=== PATIENT | female | born 1995 | race Caucasian/White ===

== ENCOUNTER 2024-12-15 16:34 | Outpatient (CLI) | payer BC, SELFPAY ==
[2024-12-15 21:11] LABS: Bacterial Vaginosis* Negative (Negative); Candida glab/krus NOT DETECTED (No Detected); Candida species DETECTED (No Detected); Trichomonas vaginalis NOT DETECTED (No Detected)
[2024-12-15 21:42] LABS: Chlamydia DNA Amplified* NOT DETECTED (No Detected); GC DNA Amplified* NOT DETECTED (No Detected)
[2024-12-19 05:17] LABS: HPV Source Cervix; HPV, High Risk by TMA Not Detected
== END 2024-12-15 16:35 | disposition home or self-care (01) ==
PROVIDERS: Visit Provider Registered Nurse
DX: R10.2 Pelvic and perineal pain (principal); N91.2 Amenorrhea, unspecified; Z11.3 Encounter for screening for infections with a predominantly sexual mode of transmission; Z12.4 Encounter for screening for malignant neoplasm of cervix; Z11.51 Encounter for screening for human papillomavirus (HPV); Z13.6 Encounter for screening for cardiovascular disorders; Z13.1 Encounter for screening for diabetes mellitus
CPT/HCPCS: 80061; 81513; 87481; 87491; 87591; 87624; 87625; 87661; 88141; 88142

== ENCOUNTER 2024-12-29 17:06 | Outpatient (CLI) | payer BC, SELFPAY | END 2024-12-29 17:07 | disposition home or self-care (01) | LOC: NFLDREF 17:07 | PROVIDERS: Visit Provider Registered Nurse | DX: R10.2 Pelvic and perineal pain (principal); R68.82 Decreased libido | CPT/HCPCS: 87086 ==

== ENCOUNTER 2025-01-01 14:46 | Outpatient (CLI) | payer BC, SELFPAY ==
--- NOTE | 2025-01-01 15:00 | CRLHL7_ITS ---
For Patients: As a result of the Century Cures Act, medical imaging exams and procedure reports are released immediately into your electronic medical record. You may view this report before your referring provider. If you have questions, please contact your health care provider. CLINICAL HISTORY: Pelvic pain COMPARISON: 11/26/2018 TECHNIQUE: 2D simons-scale ultrasound. In addition, color Doppler and spectral Doppler analysis was performed of the pelvis using a transabdominal and transvaginal approach. Transvaginal imaging performed to better visualize the endometrial stripe and ovaries. FINDINGS: Uterus measures 7.0 x 3.3 x 3.7 cm. No uterine fibroid. Uterine echotexture is homogeneous. The endometrial lining appears normal and measures 4 mm in thickness. The right ovary measures 3.3 x 2.8 x 3.5 cm in size and the left ovary measures 3.6 x 2.3 x 3.2 cm. The ovaries demonstrate normal arterial and venous blood flow on color Doppler and spectral Doppler analysis. There are no suspicious fluid collections within the cul-de-sac. Right ovarian volume 16.3 cm. Left ovarian volume 13.7 cm. Peripheral follicles noted within each ovary. IMPRESSION: No torsion or adnexal mass. No excess pelvic free fluid. Polycystic appearance of the ovaries. Dictated by Marquis Conrad MD @ 01/01/2025 3:35:52 PM (Electronically Signed)
== END 2025-01-01 14:47 | disposition home or self-care (01) ==
LOC: US 14:46
PROVIDERS: Visit Provider Registered Nurse
DX: R10.2 Pelvic and perineal pain (principal)
CPT/HCPCS: 76830; 76856; 93976